=== PATIENT | female | born 1945 | race Hispanic/Latino ===

== ENCOUNTER 2018-06-26 13:07 | Day surgery (SDC) | payer OTHER ==
[2018-06-24 11:29] VITALS: BMI 25.9
[~2018-06-26 13:07] MED LIST: Barium Sulfate Susp 2.1% w/v, 2.0% w/w 450 mL Bottle PO ONE
[2018-06-26 13:57] LABS: BASO # 0.01 K/mm3 (0.0-2.0); BASO % 0.1 % (0.0-3.0); EOS # 0.1 (0.0-0.7); EOS % 1.3 % (1.5-5.0); GRAN # 4.29 (1.4-6.5); GRAN % 61.5 % (50.0-68.0); HEMOGLOBIN 11.5 g/dL (12.0-16.0); LYMPH # 2.1 (1.2-3.4); LYMPH % 30.4 % (22.0-35.0); MEAN CELL VOLUME 93.3 fl (80.0-105.0); MEAN CORPUSCULAR HEMOGLOBIN 29.7 pg (25.0-35.0); MEAN CORPUSCULAR HGB CONC 31.9 g/dl (31.0-37.0); MEAN PLATELET VOLUME 9.2 fl (7.0-11.0); MONO # 0.5 (0.1-0.6); MONO % 6.7 % (1.0-6.0); RBC 3.87 10^6/uL (3.5-6.1)
[2018-06-26 14:05] LABS: INR 1.15; PARTIAL THROMBOPLASTIN TIME 30.9 Seconds (26.9-38.3)
[2018-06-26 14:06] LABS: BLOOD UREA NITROGEN 18 mg/dL (7-21); GFR NON-AFRICAN AMERICAN > 60
[2018-06-26] MEDS ORDERED: Midazolam 2 MG/2 ML VIAL ONE (15:32)
[2018-06-26] MEDS ORDERED: Midazolam 2 MG/2 ML VIAL IVP ONE (16:10)
[2018-06-26] MEDS ORDERED: Oxycodone/Acetaminophen 5/325 mg Tab PO PRN ×2 (16:26→18:41)
[2018-06-26] MEDS ORDERED: Sodium Chloride 0.45% 1,000 ML IV SCH ×2 (16:30→18:45)
--- NOTE | 2018-06-26 17:02 | CT ---
PROCEDURE: CT guided mesenteric biopsy. HISTORY: Subtle nodular changes in the mesentery and small amount of ascites suggestive of carcinomatosis. Breast carcinoma in 2018. Evaluate for malignancy. PHYSICIAN(S): Ming Calhoun MD. TECHNIQUE: A CT scan of the abdomen pelvis with oral contrast was performed initially. This revealed a small amount of ascites and the nodular changes in the mesentery. In addition there is a 4.5 cm solid mass in the left adnexa. A mesenteric mass at the level of the umbilicus was selected for biopsy. The relative risks and indications of the procedure were explained to the patient and consent obtained. Conscious sedation and monitoring was provided throughout the procedure by a nurse The nodular mesenteric changes at are just to the right of the umbilicus.. A anterior approach was selected and the area prepped and draped in the usual sterile fashion. 1% Xylocaine was used to anesthetize the skin and soft tissues. A 17-gauge guiding needle was advanced into the nodular mesenteric changes at the level of the umbilicus.. Its position was confirmed with CT. Using coaxial technique, multiple core biopsies were obtained. The postprocedure images show no evidence of significant hemorrhage. IMPRESSION: 1. CT-guided mesenteric biopsy as described above. 2. 4.5 cm solid left adnexal mass. This raises the possibility of ovarian CA. If the mesenteric biopsy is negative, biopsy of the left adnexa can be performed for diagnosis
[2018-06-27 07:35] LABS: HEMOGLOBIN 11.4 g/dL (12.0-16.0); MEAN CELL VOLUME 92.9 fl (80.0-105.0); MEAN CORPUSCULAR HEMOGLOBIN 29.8 pg (25.0-35.0); MEAN CORPUSCULAR HGB CONC 32.1 g/dl (31.0-37.0); MEAN PLATELET VOLUME 9.6 fl (7.0-11.0); RBC 3.82 10^6/uL (3.5-6.1); RED CELL DISTRIBUTION WIDTH 14.2 % (11.5-14.5); WHITE BLOOD COUNT 6.9 10^3/uL (4.5-11.0)
[2018-06-27 07:59] LABS: BLOOD UREA NITROGEN 11 mg/dL (7-21); CALCIUM 8.5 mg/dL (8.4-10.5); GFR NON-AFRICAN AMERICAN > 60
[2018-06-27 09:53] VITALS: BP 104/51; PULSE 77; RESP 20; TEMP 97.9; O2SAT 96
[2018-06-27] MEDS ORDERED: LYSINE 500 MG PO SCH (10:00)
== END 2018-06-27 14:36 | disposition home or self-care (01) ==
LOC: SDS 13:07 → 5RNO 19:25 → SDS 06-27 14:36
PROVIDERS: ATTEND Radiology Vascular & Interventional Radiology
DX: R19.05 Periumbilic swelling, mass or lump (principal); Z85.3 Personal history of malignant neoplasm of breast; Z91.041 Radiographic dye allergy status
CPT/HCPCS: 36415 ×2; 49180; 77012; 80048 ×2; 82948; 85025; 85027; 85610; 85730; 88305; J2001; J2250; J2405; J3010; J7030; J8540